=== PATIENT | female | born 1955 | race Caucasian/White ===

== ENCOUNTER 2019-03-28 02:07 | Inpatient (IN) | payer OTHER ==
[2019-03-28] MEDS ORDERED: Ondansetron INJ* 2 MG/ML VIAL ONE (02:34)
[2019-03-28] MEDS ORDERED: Ondansetron INJ* 2 MG/ML VIAL IV ONE (02:41)
--- NOTE | 2019-03-28 02:43 | ED ---
Abdominal Pain/Female - HPI Summary HPI Summary: This patient is a 64 year old female brought in by EMS presenting to [facility] with a chief complaint of abdominal pain, nausea, and vomiting. The patient says she thinks she has food poisoning from a restaurant. She thinks it is food poisoning because her daughter's boyfriend simultaneously experienced similar symptoms. The patient reports chills. She rates her pain 8/10 in severity. Patient had surgery 9 weeks ago to remove her sigmoid colon. - History of Current Complaint Chief Complaint: EDAbdPain Stated Complaint: "ABD PAIN" PER EMS Hx Obtained From: Patient Onset/Duration: Lasting Hours Pain Intensity: 8 Pain Scale Used: 0-10 Numeric Allergies/Adverse Reactions: Allergies Allergy/AdvReac Type Severity Reaction Status Date / Time FLORECITA Inhibitors Allergy Swelling Verified 03/28/19 02:21 Of Face,Lips,& Throat lidocaine Allergy See Comment Verified 03/28/19 02:21 topiramate [From Topamax] Allergy See Comment Verified 03/28/19 02:21 tramadol [From Ultram] Allergy See Comment Verified 03/28/19 02:21 Home Medications: Home Medications Atorvastatin* [Lipitor*] 10 mg PO DAILY 03/28/19 [History Confirmed 03/28/19] Cyanocobalamin INJ * [Vitamin B12 INJ *] 1,000 mcg IM SEE INSTRUCTIONS 03/28/19 [History Confirmed 03/28/19] DOXYcycline CAP(*) [DOXYcycline 100MG CAP(*)] 100 mg PO BID 03/28/19 [History Confirmed 03/28/19] Ezetimibe TAB* [Zetia TAB*] 10 mg PO DAILY 03/28/19 [History Confirmed 03/28/19] Folic Acid TAB* [Folvite TAB*] 2 mg PO DAILY 03/28/19 [History Confirmed ] Gabapentin CAP(*) [Neurontin 300 CAP(*)] 300 mg PO BEDTIME 03/28/19 [History Confirmed 03/28/19] Levothyroxine TAB* [Synthroid TAB*] 175 mcg PO 0600 03/28/19 [History Confirmed 03/28/19] Turmeric 400 mg PO DAILY 03/28/19 [History Confirmed 03/28/19] amLODIPine TAB* [Norvasc 5 mg TAB*] 5 mg PO DAILY 03/28/19 [History Confirmed ] PMH/Surg Hx/FS Hx/Imm Hx Endocrine/Hematology History: Reports: Hx Thyroid Disease Cardiovascular History: Reports: Hx Hypercholesterolemia, Hx Hypertension Denies: Hx Coronary Artery Disease - Surgical History Surgery Procedure, Year, and Place: sigmoid colectomy December 2018. Infectious Disease History: No Infectious Disease History: Denies: Traveled Outside the [place] in Last 30 Days - Family History Known Family History: Negative: Seizure Disorder - Social History Alcohol Use: Occasionally Substance Use Type: Reports: None Smoking Status (MU): Never Smoked Tobacco Review of Systems Positive: Chills Positive: Abdominal Pain, Vomiting, Nausea All Other Systems Reviewed And Are Negative: Yes Physical Exam - Summary Physical Exam Summary: VITAL SIGNS: Reviewed. GENERAL: Patient is a well-developed and nourished FEMALE who is lying comfortable in the stretcher. Patient is not in any acute respiratory distress. HEAD AND FACE: No signs of trauma. No ecchymosis, hematomas or skull depressions. No sinus tenderness. EYES: PERRLA, EOMI x 2, No injected conjunctiva, no nystagmus. EARS: Hearing grossly intact. Ear canals and tympanic membranes are within normal limits. MOUTH: Oropharynx within normal limits. NECK: Supple, trachea is midline, no adenopathy, no JVD, no carotid bruit, no c- spine tenderness, neck with full ROM CHEST: Symmetric, no tenderness at palpation LUNGS: Clear to auscultation bilaterally. No wheezing or crackles. CVS: Regular rate and rhythm, S1 and S2 present, no murmurs or gallops appreciated. ABDOMEN: Soft, non-tender. No signs of distention. No rebound no guarding, and no masses palpated. Bowel sounds are normal. EXTREMITIES: FROM in all major joints, no edema, no cyanosis or clubbing. NEURO: Alert and oriented x 3. No acute neurological deficits. Speech is normal and follows commands. SKIN: Dry and warm Triage Information Reviewed: Yes Vital Signs On Initial Exam: Initial Vitals Temp Pulse Resp BP Pulse Ox 98.8 F 53 18 160/84 98 03/28/19 02:13 03/28/19 02:13 03/28/19 02:13 03/28/19 02:13 03/28/19 02:13 Vital Signs Reviewed: Yes Procedures - NG Lavage NG Lavage: bilious non-bloody Diagnostics - Vital Signs Vital Signs Temp Pulse Resp BP Pulse Ox 03/28/19 02:13 98.8 F 53 18 160/84 98 - Laboratory Result Diagrams: 03/28/19 04:05 03/28/19 04:05 Lab Statement: Any lab studies that have been ordered have been reviewed, and results considered in the medical decision making process. - CT Abd/Pel CT Interpretation Completed By: Radiologist Summary of CT Findings: 1. Distended loops of small bowel suggesting development of early or partial small bowel obstruction with the transition point in the midabdomen. 2. Intraperitoneal fluid. 3. Status post rectosigmoid suture. 4. Mild dilatation of the common hepatic duct with mild dilatation of a few of the intrahepatic biliary radicles. 5. Cholecystectomy. ED Provider has reviewed this report. Re-Evaluation - Re-Evaluation First Eval Re-Evaluation Time: 05:49 Comment: Discussed imaging results and plan. Abdominal Pain Fem Course/Dx - Course Course Of Treatment: This patient is a 64 year old female brought in by EMS presenting to [facility] with a chief complaint of abdominal pain, nausea, and vomiting. CT Abd/Pel reveals 1. Distended loops of small bowel suggesting development of early or partial small bowel obstruction with the transition point in the midabdomen. Dr. Owens, surgery, was consulted at 0611, and he stated he will come see the patient in the ED. 2. Intraperitoneal fluid. 3. Status post rectosigmoid suture. 4. Mild dilatation of the common hepatic duct with mild dilatation of a few of the intrahepatic biliary radicles. 5. Cholecystectomy. Patient will be signed out to Dr. Robles at shift change 0700 pending surgery consult and dispo. - Diagnoses Provider Diagnoses: Small bowel obstruction - Provider Notifications Discussed Care Of Patient With: Donell Owens - Surgery Time Discussed With Above Provider: 06:11 Instructed by Provider To: MD Will See In ED Discharge - Sign-Out/Discharge Documenting (check all that apply): Sign-Out Patient Signing out patient TO: Joseph Robles - At shift change 0700 - Discharge Plan Condition: Stable Referrals: No Primary Care Phys,NOPCP [Primary Care Provider] - - Attestation Statements Document Initiated by Scribe: Yes Documenting Scribe: Tad Sauceda Provider For Whom Scribe is Documenting (Include Credential): Kirk Leon MD Scribe Attestation: Tad Gooden, scribed for Kirk Leon MD on 03/28/19 at 0648.
[2019-03-28] MEDS ORDERED: NS 0.9% 1000 ML** 1,000 ML IV ONE ×2 (02:48→03:51)
[2019-03-28] MEDS ORDERED: Morphine 4 MG/ML VIAL (1 ml) 4 MG/ML VIAL IV ONE ×2 (02:48→06:02)
[2019-03-28 04:13] LABS: ABS Lymphocytes 0.5 10^3/ul (1.0-4.8); ABS Monocytes 0.3 10^3/ul (0-0.8); ABS Neutrophils 5.8 10^3/ul (1.5-7.7); Eosinophil % 0.1 %; Hematocrit 39 % (35-47); Hemoglobin 13.3 g/dL (12.0-16.0); Lymphocyte % 7.3 %; Mean Corpuscular HGB Conc 34 g/dL (31-36); Mean Corpuscular Hemoglobin 32 pg (27-31); Mean Corpuscular Volume 95 fL (80-97); Mean Platelet Volume 8.8 fL (7.4-10.4); Nucleated Red Blood Cells % 0.1; Platelet Count 209 10^3/uL (150-450); Red Cell Distribution Width 13 % (10.5-15); White Blood Count 6.7 10^3/uL (3.5-10.8)
[2019-03-28 04:23] LABS: Activated Partial Thrombo Time 27.7 seconds (26.0-36.3); INR 1.01 (0.82-1.09)
[2019-03-28 04:37] LABS: ALT 27 U/L (7-52); AST 24 U/L (13-39); Albumin 4.1 g/dL (3.2-5.2); Albumin/Globulin Ratio 1.7 (1-3); Alkaline Phosphatase 49 U/L (34-104); Amylase 23 U/L (29-103); Anion Gap 7 mmol/L (2-11); BUN/Creatinine Ratio 18.8 (8-20); Blood Urea Nitrogen 16 mg/dL (6-24); C Reactive Protein < 1.00 mg/L (<8.01); CO2 Carbon Dioxide 30 mmol/L (22-32); Calcium 9.3 mg/dL (8.6-10.3); Chloride 103 mmol/L (101-111); EGFR African American 81.7 (>60); EGFR Non-African American 67.5 (>60); Globulin 2.4 g/dL (2-4); Glucose 138 mg/dL (70-100); Potassium 4.1 mmol/L (3.5-5.0); Sodium 140 mmol/L (135-145); Total Protein 6.5 g/dL (6.4-8.9)
[2019-03-28] MEDS ORDERED: Iohexol 300* (CONTRAST) 10 ML SDV IV ONE (05:06)
[2019-03-28] MEDS ORDERED: NS 0.9% 1000 ML** 1,000 ML IV SCH (06:15)
[2019-03-28] MEDS ORDERED: Lidocaine 2% JELLY* 6 ML JELLY TOPICAL ONE ×2 (06:22→06:36)
--- NOTE | 2019-03-28 06:54 | ED ---
Progress - Progress Note Progress Note: Patient is a sign out to Dr. Robles from Dr. Leon pending disposition with Dr. Owens at shift change on 7am - 7pm 03/28/19. Re-Evaluation - Re-Evaluation First Eval Re-Evaluation Time: 07:26 Course/Dx - Course Course Of Treatment: Patient was seen by the surgeon in the ER and admitted for further. She is status post sigmoidectomy. - Diagnoses Provider Diagnoses: Small bowel obstruction, Status post laparoscopic-assisted sigmoidectomy - Provider Notifications Time Discussed With Above Provider: 06:11 Instructed by Provider To: MD Will See In ED Discharge - Sign-Out/Discharge Documenting (check all that apply): Patient Departure - admitted Patient Received Moderate/Deep Sedation with Procedure: No - Discharge Plan Condition: Fair Disposition: ADMITTED TO [facility] - Billing Disposition and Condition Condition: FAIR Disposition: Admitted to [facility] - Attestation Statements Document Initiated by [employer]: Yes Documenting Scribe: Yuval Reynolds Provider For Whom Connoribe is Documenting (Include Credential): Joseph Robles MD Scribe Attestation: Yuval Gooden, scribed for Joseph Robles MD on 03/28/19 at 0849. Scribe Documentation Reviewed: Yes Provider Attestation: The documentation as recorded by the Yuval ferraro accurately reflects the service I personally performed and the decisions made by , Joseph Robles MD Status of Scribe Document: Viewed
[2019-03-28] MEDS ORDERED: Morphine 4 MG/ML VIAL (1 ml) 4 MG/ML VIAL IV PRN (08:06)
[2019-03-28] MEDS ORDERED: Ondansetron INJ* 2 MG/ML VIAL IV PRN (08:06)
[2019-03-28] MEDS ORDERED: Pantoprazole IV* 40 MG IV SCH (09:00)
[2019-03-28] MEDS: Famotidine IV* 10 MG/ML 2 ML (20 mg) IV SCH ×2 (09:59→20:32)
[2019-03-28] MEDS: NS 0.9% 1000 ML** 1,000 ML IV SCH ×2 (10:04→22:39)
[2019-03-28] MEDS ORDERED: HYDROmorphone INJ1* 1 MG/ML SYRINGE IV SLOW PU PRN (14:03)
[2019-03-28] MEDS ORDERED: HYDROmorphone INJ* 0.5 MG/0.5 ML SYRINGE IV SLOW PU PRN (14:03)
[2019-03-28] MEDS ORDERED: HYDROmorphone INJ1* 1 MG/ML SYRINGE ONE (14:08)
[2019-03-28] MEDS ORDERED: Metoclopramide IV* 5 MG/ML 2 ML VIAL ONE (14:08)
[2019-03-28 14:09] LABS: Urine Appearance Clear; Urine Bilirubin Negative (Negative); Urine Blood Negative (Negative); Urine Color Yellow; Urine Glucose Negative (Negative); Urine Ketones 1+ (Negative); Urine Nitrite Negative (Negative); Urine Protein Negative (Negative); Urine Specific Gravity 1.045 (1.010-1.030); Urine Urobilinogen Negative (Negative)
[2019-03-28] MEDS: Metoclopramide IV* 5 MG/ML 2 ML VIAL IV PRN ×2 (14:13→20:34)
--- NOTE | 2019-03-28 15:26 | HP ---
CC: [facility] ADMISSION HISTORY AND PHYSICAL: DATE OF ADMISSION: 03/28/19 REASON FOR ADMISSION: Small bowel obstruction. CHIEF COMPLAINT: Abdominal pain with nausea and vomiting. 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 She was out eating lunch yesterday and shortly thereafter developed nausea with vomiting of the food that she had just eaten. This was nonbilious. She developed some progressive abdominal distention and worsening pain and presented to the emergency room here late last night. She denied any fevers, shakes, or chills. She had no diarrhea or change in bowel habits. She had not been passing flatus since yesterday. She states 9 weeks ago she underwent a combined laparoscopic and open sigmoid colon resection for a benign polyp as well as diverticular disease. She said this was complicated somewhat by a postoperative ileus and some prolonged abdominal discomfort and she has felt somewhat distended since that surgery. Her bowels had been working normally for her, however, and she had been eating well and resuming her normal activities. While in the emergency room, she was noted to be afebrile with stable vital signs and a heart rate of 53. Laboratory workup included a normal white blood cell count without bandemia. Electrolytes, BUN and creatinine were unremarkable. She had a lactic acid of 0.6. She underwent a CT scan of the abdomen and pelvis. This was done without IV or oral contrast. I did review these images. This shows a mildly distended stomach, some free intraabdominal fluid mainly along the spleen and in the pelvis, as well as some mild dilation of the proximal small bowel with some apparent distal small bowel collapse suggestive of a transition point and consistent with a small bowel obstruction. There is no free air or other inflammatory process. A nasogastric tube was inserted while she was in the emergency room and drained about 250 cc of bilious fluid. Surgical consultation in the emergency room is obtained and she is now being admitted to the surgical service for management of a small bowel obstruction. PAST MEDICAL HISTORY: 1. Chiari malformation. 2. Hyperlipidemia. 3. Hypertension. 4. Recent treatment for Lyme disease. PAST SURGICAL HISTORY: 1. Craniotomy x2 for her Chiari malformations. 2. Sigmoid colectomy as per above. 3. Laparoscopic cholecystectomy. 4. Bilateral open inguinal hernia repairs. MEDICATIONS: Included: 1. Norvasc 5 mg daily. 2. Turmeric 400 mg p.o. daily. 3. Levothyroxine 175 mcg p.o. daily. 4. Neurontin 300 mg p.o. at bedtime. 5. Folic acid. 6. Zetia 10 mg daily. 7. Doxycycline 100 mg p.o. b.i.d., recently completed 3-week course of treatment. 8. Vitamin B12. 9. Lipitor 10 mg daily. ALLERGIES: FLORECITA INHIBITORS, LIDOCAINE, TOPAMAX, and ULTRAM. SOCIAL HISTORY: She is and is a retired orthopedic surgeon. She does not use tobacco. REVIEW OF SYSTEMS: Otherwise unremarkable and a 14-step review of systems was otherwise unremarkable. PHYSICAL EXAMINATION GENERAL: She is a well-developed, well-nourished, healthy female, appears to be in no apparent distress. She is awake, alert, and conversive. VITAL SIGNS: Temperature 98.3, pulse 54, blood pressure 139/65. HEENT: Oral mucosa is slightly dry. LUNGS: Clear to auscultation with normal respiratory effort. HEART: Regular rate and rhythm without murmurs, rubs, or gallops. ABDOMEN: Soft, slightly distended and firm. She has well-healed low midline incisions without hernia. There are well-healed bilateral groin oblique incisions without recurrent hernia. She has several laparoscopic incisions in the upper abdomen. Bowel sounds are present and are normoactive throughout and slightly hyperactive in the areas. There is no high-pitched tinkling. She has some mild tenderness throughout, but there is no peritoneal irritation, rebound , or guarding. PSYCHIATRIC: She is awake, alert, and oriented x3. She has normal judgment and insight. IMPRESSION: 1. Small bowel obstruction by CT scan in a 64-year-old woman who undergone a sigmoid colectomy 9 weeks ago in [facility] for benign polyp as well as diverticular disease. She has a normal white blood cell count, no fever or tachycardia and only mild tenderness on physical examination. CT scan as per above. Her NGT has drained only a small amount so far. 2. History of Chiari malformation. 3. Hypertension. 4. Hypothyroidism. 5. Hypercholesterolemia. PLAN: 1. A nasogastric tube has been inserted and we will continue with decompression. 2. IV fluids will be administered. 3. We will give her analgesia and antiemetics as necessary. 4. Repeat abdominal films will be obtained in the morning. 5. She has completed her course of doxycycline for Lyme disease. We will not continue this. 6. I will hold the antihypertensive and cholesterol medicines at this time until she is able to take oral medications. All of the above treatment plan was discussed with her in detail. I explained to her that most adhesive small bowel obstructions will resolve spontaneously without operative intervention; however, after 48 to 72 hours if there is no improvement or if there is worsening or reimaging shows progression of a bowel obstruction, this may require laparoscopy and/or exploratory laparotomy for treatment. She understands this and I will keep her informed as to her progress. [id number]/[facility] #: [id number] MUKESH
[2019-03-28] MEDS: HYDROmorphone INJ1* 1 MG/ML SYRINGE IV SLOW PU PRN (21:00)
[2019-03-29] MEDS: Metoclopramide IV* 5 MG/ML 2 ML VIAL IV PRN (04:46)
[2019-03-29] MEDS: HYDROmorphone INJ1* 1 MG/ML SYRINGE IV SLOW PU PRN (04:47)
[2019-03-29] MEDS: NS 0.9% 1000 ML** 1,000 ML IV SCH ×3 (04:53→18:56)
[2019-03-29 06:03] LABS: Hematocrit 35 % (35-47); Mean Corpuscular HGB Conc 34 g/dL (31-36); Mean Corpuscular Hemoglobin 33 pg (27-31); Mean Corpuscular Volume 96 fL (80-97); Mean Platelet Volume 8.7 fL (7.4-10.4); Platelet Count 178 10^3/uL (150-450); Red Blood Count 3.68 10^6 /uL (3.70-4.87); Red Cell Distribution Width 14 % (10.5-15); White Blood Count 4.5 10^3/uL (3.5-10.8)
[2019-03-29 06:13] LABS: BUN/Creatinine Ratio 15.9 (8-20); Calcium 8.5 mg/dL (8.6-10.3); EGFR African American 85.2 (>60); EGFR Non-African American 70.4 (>60); Potassium 3.9 mmol/L (3.5-5.0)
[2019-03-29] MEDS: Famotidine IV* 10 MG/ML 2 ML (20 mg) IV SCH ×2 (09:37→20:34)
[2019-03-29] MEDS ORDERED: HYDROmorphone INJ1* 1 MG/ML SYRINGE IV SLOW PU PRN (11:13)
--- NOTE | 2019-03-29 11:50 | PN ---
Progress Note - Progress Note Date of Service: 03/29/19 SOAP: Subjective: She is having some intermittent crampy abdominal pain, several doses of Dilaudid overnight No flatus or BM, not nauseated at present Tolerating ice chips Objective: Temp Pulse Resp BP Pulse Ox 98.4 F 51 16 118/67 94 03/29/19 11:25 03/29/19 11:25 03/29/19 11:25 03/29/19 11:25 03/29/19 11:25 Intake & Output 03/27/19 03/28/19 03/29/19 03/30/19 06:59 06:59 06:59 06:59 Intake Total 1999 3907 997 Output Total 1450 300 Balance 1999 2457 697 Weight 143 lb 143 lb Intake: IV Fluids 1999 3907 997 NS 3887 987 Oral 0 0 Output: NG Tube Drainage Amount 750 Urine 700 300 Other: # Bowel Movements 0 PEX: Comfortable-awake and alert Lungs are clear Cor RRR Abd is soft and slightly distended. Bowel sounds are present, some rushing sounds, not high pitched or tinkling. Mild tenderness epigastrum without rebound or guarding. Laboratory Results - last 24 hr 03/28/19 03/29/19 03/29/19 13:45 05:42 05:42 WBC 4.5 RBC 3.68 L Hgb 12.0 Hct 35 MCV 96 MCH 33 H MCHC 34 RDW 14 Plt Count 178 MPV 8.7 Sodium 140 Potassium 3.9 Chloride 107 Carbon Dioxide 27 Anion Gap 6 BUN 13 Creatinine 0.82 Est GFR ( Amer) 85.2 Est GFR (Non-Af Amer) 70.4 BUN/Creatinine Ratio 15.9 Glucose 98 Calcium 8.5 L Urine Color Yellow Urine Appearance Clear Urine pH 6.0 Ur Specific [place] 1.045 H Urine Protein Negative Urine Ketones 1+ A Urine Blood Negative Urine Nitrate Negative Urine Bilirubin Negative Urine Urobilinogen Negative Ur Leukocyte Esterase Negative Urine Glucose Negative AXR 03/29 reviewed--several loops of mildly distended small bowel, stool and gas in colon. Assessment: SBO-presumed secondary to adhesions-no significant improvement No urgent indication for surgical intervention at this point. Plan: Continue NGT/IVF/NPO Increase activity Pepcid Discussed care with patient and her -continue present management for another 24 hours-if no improvement, may consider repeat CT scan with oral contrast before deciding on surgery.
[2019-03-29] MEDS ORDERED: Acetaminophen SUPP* 650 MG SUPP PR ONE (21:00)
[2019-03-30] MEDS: NS 0.9% 1000 ML** 1,000 ML IV SCH ×2 (01:28→07:55)
[2019-03-30] MEDS: Famotidine IV* 10 MG/ML 2 ML (20 mg) IV SCH ×2 (08:49→20:32)
[2019-03-30] MEDS ORDERED: D5LR 20 MEQ KCL 1000 ML BAG* 1,000 ML IV SCH (09:00)
[2019-03-30] MEDS ORDERED: Acetaminophen TAB* 325 MG PO PRN (11:34)
[2019-03-30] MEDS: amLODIPine TAB* 5 MG PO SCH (12:13)
[2019-03-30] MEDS: Levothyroxine TAB* 175 MCG TAB PO SCH (12:14)
--- NOTE | 2019-03-30 12:30 | PN ---
Progress Note - Progress Note Date of Service: 03/30/19 SOAP: Subjective: She had 3 small BM's last night No significant pain, has not needed narcotic No flatus, no N/V Ambulating in halls She has an appetite Objective: Temp Pulse Resp BP Pulse Ox 98.8 F 49 18 136/69 98 03/30/19 11:37 03/30/19 11:37 03/30/19 11:37 03/30/19 11:37 03/30/19 11:37 Intake & Output 03/28/19 03/29/19 03/30/19 03/31/19 06:59 06:59 06:59 06:59 Intake Total 1999 3907 3197 965 Output Total 1450 2175 200 Balance 1999 2457 1022 765 Weight 143 lb 143 lb Intake: IV Fluids 1999 3907 2957 965 NS 3887 2947 965 Oral 0 240 Output: NG Tube Drainage Amount 750 825 Urine 700 1350 200 Liquid Stool 0 Other: # Bowel Movements 0 0 2 Estimated Stool Amount Small Small PEX: Comfortable Lungs are clear Abd is soft and less distended. Bowel sounds are present and are normoactive. No tenderness No labs or AXR Assessment: SBO-clinically improving. Minimal NGT output (taking ice chips) Plan: D/C NGT Sips of clears Decrease IVF
[2019-03-30] MEDS ORDERED: Gabapentin CAP(*) 300 MG PO SCH (21:00)
[2019-03-31] MEDS: Levothyroxine TAB* 175 MCG TAB PO SCH (06:34)
[2019-03-31 07:59] VITALS: BP 163/81
--- NOTE | 2019-03-31 08:42 | PN ---
Progress Note - Progress Note Date of Service: 03/31/19 SOAP: Subjective: Doing well-passing flatus and had several bowel movements yesterday Ambulating No pain Objective: Temp Pulse Resp BP Pulse Ox 97.4 F 51 18 163/81 97 03/31/19 07:28 03/31/19 07:28 03/31/19 07:28 03/31/19 07:28 03/31/19 07:28 Intake & Output 03/29/19 03/30/19 03/31/19 04/01/19 06:59 06:59 06:59 06:59 Intake Total 3907 3197 2212 Output Total 1450 2175 3450 Balance 2457 1022 -1238 Weight 143 lb Intake: IV Fluids 3907 2957 1422 D5W LR 20 meq KCL 457 NS 3887 2947 965 Oral 0 240 790 Output: NG Tube Drainage Amount 750 825 Urine 700 1350 3450 Liquid Stool 0 Other: # Bowel Movements 0 0 0 Estimated Stool Amount Small Small PEX: Comfortable Lungs are clear Cor is RRR Abd is soft and non-distended. Bowel sounds are present and are normoactive. No tenderness Assessment: SBO-resolving Plan: D/C home today Resume home meds Instructions given-[place]vance [place] will be following up with her surgeon in [facility] on Wednesday04/03/19.
[2019-03-31] MEDS: amLODIPine TAB* 5 MG PO SCH (08:43)
[2019-03-31] MEDS: Famotidine IV* 10 MG/ML 2 ML (20 mg) IV SCH ×2 (08:43→08:45)
--- NOTE | 2019-03-31 09:20 | DS ---
CC: [facility] DISCHARGE SUMMARY: DATE OF ADMISSION: 03/27/19 DATE OF DISCHARGE: 03/31/19 PRINCIPAL DIAGNOSIS: Small bowel obstruction. CONDITION ON DISCHARGE: Good. DISPOSITION: Home. MEDICATIONS ON DISCHARGE: 1. Amlodipine 5 mg daily. 2. Gabapentin 300 mg p.o. at bedtime. 3. Levothyroxine 175 mcg p.o. daily. 4. Atorvastatin 10 mg daily. 5. Vitamin B12 injection as planned. 6. Zetia 10 mg daily. 7. Folic acid 2 mg daily. 8. Turmeric 400 mg p.o. daily. FOLLOWUP: [place], recently had surgery in [facility]. She is to see her col orectal surgeon in [facility] on 04/03/19. There was no follow up necessary here in the [place] office with [facility]. DIET: She is to advance her diet to regular as tolerated. ACTIVITY: She had no activity restrictions. 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 She was visiting [place] over the weekend and after eating a lunch on the day of presentation developed severe abdominal pain with nausea and vomiting and distention. She presen chyna to the emergency room and although her laboratory workup was unremarkable, CT scan of the abdomen and pelvis done without oral or IV contrast showed findings consistent with a small bowel obstructio n. HOSPITAL COURSE: The patient was seen in Surgical consultation and was felt to have a small bowel ob struction most likely due to adhesions. There were no urgent indications for laparotomy. Nasogastri c tube was inserted and she was admitted to the surgical floor on the surgical service. She was kept n.p.o. On hospital day #1, she remained afebrile with no tachycardia. Her laboratory workup was also unrema rkable. On hospital day #2, she began having bowel movements. She was passing flatus and her nasogastric tub e was discontinued. It had drained a minimal amount during her stay. She was started on clear liquids which she tolerated well. On the day of discharge, she was having b owel movement and passing flatus, having no abdominal pain or distention and she was discharged home with the above instructions and followup. [id number]/[facility] #: [id number]
== END 2019-03-31 10:30 | disposition home or self-care (01) | DRG 247 ==
LOC: ED 02:07 → SSU 08:03 → OBSVTOIN 03-29 15:22
PROVIDERS: ADMIT Surgery; ATTEND Surgery
PROC: 0D9670Z Drainage of Stomach with Drainage Device, Via Natural or Artificial Opening (ICD-10-PCS; principal; 2019-03-31)
DX: K56.50 Intestinal adhesions [bands], unspecified as to partial versus complete obstruction (principal); E78.5 Hyperlipidemia, unspecified; I10 Essential (primary) hypertension; E03.9 Hypothyroidism, unspecified; E78.00 Pure hypercholesterolemia, unspecified; Z90.49 Acquired absence of other specified parts of digestive tract; Z88.8 Allergy status to other drugs, medicaments and biological substances
CPT/HCPCS: 36415; 74019; 74177; 80048; 80053; 81003; 82150; 83605; 83690; 83735; 85025; 85027; 85610; 85730; 86140; 99284; A9270-GY; J1170; J2270; J2405; J2765; Q9967